=== PATIENT | female | born 1980 | race Two or more races ===

== ENCOUNTER 2025-09-14 22:31 | Emergency (ER) | payer OTHER ==
[~2025-09-14] VITALS: Ht 162.6 cm; Wt 102.5 kg
--- NOTE | 2025-09-14 23:51 | ED.PDOC ---
History of Present Illness HPI Comments 45-year-old female with no reported past medical history presenting for evaluation of bilateral knee pain over the past few weeks. Patient states that she 1st started having knee pain earlier this month. Denied any preceding trauma, injury. Reporting noticing that her knee appeared more swollen. Was having pain with ambulation. Was intermittently taking ibuprofen with some relief. She states that after that knee was bothering her she then started having pain along her left knee, thinks that she was favoring her left knee due to her right knee discomfort. Does report that she gets back pain from time to time and was reporting some back pain over the past few weeks as well. No his tory of blood clots. Has not taken anything for the discomfort over the past day. No numbness, weakness further down the leg. Chief Complaint: Lower Extremity Time Seen by MD: 22:55 Allergies: Coded Allergies: NO KNOWN ALLERGIES (Unverified , 09/14/25) Information Source: Patient Mode of Arrival: Ambulatory Timing: Weeks Past Medical History PAST MEDICAL HISTORY: Denies Surgical History: Denies all surgeries RN CVICU History: Denies all RN CVICU Hx Family History Family History: Reviewed,noncontributory to illness Social History Smoker: Non-Smoker Alcohol: Denies ETOH Use Drugs: Denies Drug Use Lives In: Home Constitutional: denies: chills, diaphoresis, fatigue, fever, malaise, sweats, weakness, others EENTM: denies: blurred vision, double vision, ear bleeding, ear discharge, ear drainage, ear pain, ear ringing, eye pain, eye redness, hearing loss, mouth pain, mouth swelling, nasal discharge, nose bleeding, nose congestion, nose pain, photophobia, tearing, throat pain, throat swelling, voice changes, others Respiratory: denies: cough, hemoptysis, orthopnea, SOB at rest, shortness of breath, SOB with excertion, stridor, wheezing, others Cardiovascular: denies: chest pain, dizzy spells, diaphoresis, Dyspnea on exe rtion, edema, irregular heart beat, left arm pain, lightheadedness, palpitations, PND, syncope, others Gastrointestinal: denies: abdomen distended, abdominal pain, blood streaked bowels, constipated, diarrhea, dysphagia, difficulty swallowing, hematemesis, melena, nausea, poor appetite, poor fluid intake, rectal bleeding, rectal pain, vomiting, others Genitourinary: denies: abnormal vagina bleeding, burning, dyspareunia, dysuria, flank pain, frequency, hematuria, incontinence, pain, , vagina discharge, urgency, others Neurological: denies: dizziness, fainting, headache, left sided numbness, left sided weakness, numbness, paresthesia, pre-existing deficit, right sided numbness, right sided weakness, seizure, speech problems, tingling, tremors, weakness, others Musculoskeletal: reports: back pain, joint pain, joint swelling Integumetry: denies: bruises, change in color, change in hair/nails, dryness, laceration, lesions, lumps, rash, wounds, others Allergic/Immunocompromised: denies: Difficulty Healing, Frequent Infections, Hives, Itching, others Hematologic/Lymphatic: denies: anemia, blood clots, easy bleeding, easy bruising, swollen glands, others Endocrine: denies: excessive hunger, excessive sweating, excessive thirst, excessive urination, flushing, intolerance to cold, intolerance to heat, unexplained weight gain, unexplained weight loss, others Psychiatric: denies: anxiety, bipolar disorder, depression, hopeless, panic disorder, schizophrenia, sleepless, suicidal, others All Other Systems: Reviewed and Negative Physical Exam General Appearance: None HEENT: Normal ENT Inspection Neck: Non-Tender, Normal Inspection Respiratory: No Accessory Muscle Use, No Respiratory Distress, Normal Breath Sounds Cardiovascular: No Edema, Normal Peripheral Pulses, Regular Rate/Rhythm Breast Exam: Deferred Gastrointestinal: Non Tender, Soft Genitalia: Deferred Pelvic: Deferred Rectal: Deferred Extremities: No calf tenderness, Normal range of motion (Right Knee: +peripatellar effusion noted, no overlying erythema/warmth, no exacerbation of discomfort with passive or active range of motion at the knee; Left Knee: No obvious swelling noted, no overlying erythema/warmth, no exacerbation of discomfort with passive or active range of motion at the knee) Musculoskeletal : Location: Bilateral Extremity Location: Knee Apperance: Swelling, Tenderness: Mild Neurologic: Alert, No Motor Deficits, No Sensory Deficits Cerebellar Function: Normal Reflexes: Normal Skin: Normal Color Lymphatic: No Adenopathy Was a procedure done? Was a procedure done?: No Differential Dx Considerations may include: Osteoarthritis vs knee effusion vs meniscal injury vs ligamentous injury vs deep vein thrombosis X-Ray, Labs, Meds, VS Vital Signs Date Time Temp Pulse Resp B/P (MAP) Pulse Ox O2 Delivery O2 Flow Rate FiO2 09/15/25 00:58 97.9 69 14 170/90 (116) 98 97.9 09/14/25 22:33 98.0 90 18 147/103 97 98.0 Current Medications Medications (Trade) Dose Ordered Sig/Juan Pablo Route Start Time Stop Time Status Last Admin Ketorolac Tromethamine (Toradol Injection) 30 mg ONCE ONCE IM 09/14/25 23:30 09/14/25 23:31 DC 09/15/25 01:15 Acetaminophen (Tylenol Tablet) 1,000 mg ONCE ONCE PO 09/14/25 23:30 09/14/25 23:31 DC 09/15/25 01:15 Time of 1ST Reevaluation: 01:21 (Patient ambulating steadily. Reporting improvement of discomfort with interventions. Stable for discharge.) Reevaluation 1ST: Improved Patient Education/Counseling: Diagnosis, Treatment, Prognosis, Need For Follow Up Family Education/Counseling: No Family Present SEPSIS Sepsis Screen Date sepsis recognized/suspect: Sep 14, 2025 Time Sepsis recognized/suspect: 2232 Recent Procedure: No On Antibiotic Therapy: No Respiratory Rate >20: No Heart Rate >90: No Temp<36 C (96.8 F) or >38.3 C: No SBP <90 or MAP <65 mmHG: No New Acute Mental Status Change: No Is the patient on CPAP, BIPAP,: No Physician Orders R Knee 3v Xray (09/14/25 23:17) L Knee 3v Xray (09/14/25 23:17) Vital Signs Date Time Temp Pulse Resp B/P (MAP) Pulse Ox O2 Delivery O2 Flow Rate FiO2 09/15/25 00:58 97.9 69 14 170/90 (116) 98 97.9 09/14/25 22:33 98.0 90 18 147/103 97 98.0 Medications Medications Dose Ordered Sig/Juan Pablo Route Start Time Stop Time Status Last Admin Dose Admin Acetaminophen 1,000 mg ONCE ONCE PO 09/14/25 23:30 09/14/25 23:31 DC 09/15/25 01:15 Ketorolac Tromethamine 30 mg ONCE ONCE IM 09/14/25 23:30 09/14/25 23:31 DC 09/15/25 01:15 Departure 1 Departure Time of Disposition: 23:49 (45-year-old female presenting for bilateral knee pain over the past few weeks. Patient's discomfort started along the right knee, does have some swelling near the right knee itself. Suspect that the patient likely has osteoarthritis, likely knee effusion which started discomfort given that she had no preceding trauma, injury. Patient then started having left knee pain, suspect that she was likely favoring the left knee while she was dealing with the right knee discomfort. Left knee does not look particularly swollen. Has no overlying skin changes of either knee to suggest a cellulitis. Afebrile, no exacerbation of discomfort with passive or active range of motion, no history of diabetes or IV drug use, clinically does not seem consistent with septic arthritis of either joint. Discomfort originates from the knee itself. Patient has been ambulatory, has no history of blood clots, consider but do not suspect deep vein thrombosis of either leg, for this reason does not require duplex ultrasound of either leg. Bilateral knee x-rays were performed which showed no evidence of any underlying bony pathology. Patient is ambulatory here. Was given IM Toradol, oral Tylenol for analgesia. She is recommended to continue to take NSAIDs as needed for discomfort. Advised to purchase ov [id number] knee brace. Recommended to follow up with outpatient primary care doctor for further workup and management.) Impression: Primary Impression: Right knee pain Additional Impressions: Left knee pain Effusion of right knee Disposition: HOME / SELF CARE / HOMELESS Condition: Stable Additional Instructions: X-rays of both of her knees were performed which show no evidence of any bony issues. You likely have a right-sided knee effusion causing your discomfort. Please be aware that knee effusions should resolve on their own. Elevate your legs whenever you are at rest. Consider purchasing an [id number] knee sleeve to use as needed for discomfort. Take Tylenol and/or ibuprofen as needed for discomfort. Follow up with your primary care doctor for re-evaluation. If your right knee pain, swelling persists despite these interventions you may need further outpatient workup such as an MRI to further evaluate the cause of your discomfort. Discharged With: Self Critical Care Note Critical Care Time?: No Stability Stability form required: LOLIS Walsh MD Sep 14, 2025 23:51
--- NOTE | 2025-09-15 00:44 | DVH ---
CLINICAL INDICATION: left knee pain and swelling TECHNIQUE: XY L KNEE 3V XRAY Comparison: XY R KNEE 3V XRAY on DOS: 09/15/25 FINDINGS/IMPRESSION: : There is no evidence of acute fracture or dislocation. Soft tissues are unremarkable.
--- NOTE | 2025-09-15 00:46 | DVH ---
CLINICAL INDICATION: right knee pain and swelling TECHNIQUE: XY R KNEE 3V XRAY Comparison: XY L KNEE 3V XRAY on DOS: 09/15/25 FINDINGS/IMPRESSION: : There is no evidence of acute fracture or dislocation. Soft tissues are unremarkable.
[2025-09-15] MEDS: KETOROLAC TROMETH 60MG/2ML VIAL IM ONE (01:15)
[2025-09-15] MEDS: ACETAMINOPHEN 325 MG TAB PO ONE (01:15)
[2025-09-15 02:12] VITALS: BP 148/82; PULSE 68; RESP 16; TEMP 98.1; O2SAT 96
== END 2025-09-15 02:22 | disposition home or self-care (01) ==
LOC: ER 22:31
DX: M25.461 Effusion, right knee (principal); M25.562 Pain in left knee; M25.561 Pain in right knee
CPT/HCPCS: 73562; 96372; 99283; J1885